=== PATIENT | male | born 1945 | race Caucasian/White ===

== ENCOUNTER 2018-06-20 10:10 | Emergency (ER) | payer MEDICARE ==
[~2018-06-20] VITALS: Ht 185.4 cm; Wt 113.0 kg
--- NOTE | 2018-06-20 10:43 | NUR ---
AFTER EATING LUNCH YESTERDAY PATIENT WITH SENSATION OF NEEDING TO CLEAR HIS THROAT- DENIES CHOKING ON ANYTHING. PRESENTS TODAY SENSATION REMAINS AND NOW FEELS IF THROAT IS SWOLLEN/REPORTS VOICE SOUNDS DIFFERENT WELL. THROAT DOES NOT APPEAR SWOLLEN. DENIES LIFESTYLE/MEDICATION CHANGES. NO RESP DISTRESS NOTED. ON INSTRUCTIONAL DESIGN TECHNOLOGIST, VSS. IN BED W/ CALL [place] IN HAND/SIDE RAILS UP.
[2018-06-20 10:49] LABS: BASOPHILS # (AUTO) 0.02 x10^3/uL (0-0.1); BASOPHILS % (AUTO) 0 % (0-1); EOSINOPHILS # (AUTO) 0.29 x10^3/uL (0-0.4); EOSINOPHILS % (AUTO) 4 % (1-7); LYMPHOCYTES # (AUTO) 1.46 x10^3/uL (1-3.4); LYMPHOCYTES % (AUTO) 21 % (22-44); MD NO; MEAN CORPUSCULAR HEMOGLOBIN 31.8 pg (27.5-34.5); MEAN CORPUSCULAR HGB CONC 33.2 g/dL (33.2-36.2); MEAN CORPUSCULAR VOLUME 95.8 fL (81-97); MONOCYTES # (AUTO) 0.59 x10^3/uL (0.2-0.8); MONOCYTES % (AUTO) 9 % (2-9); NEUTROPHILS # (AUTO) 4.49 x10^3/uL (1.8-6.8); NEUTROPHILS % (AUTO) 66 % (42-75); PLATELET COUNT 163 x10^3/uL (130-400); RED BLOOD COUNT 4.22 x10^6/uL (4.38-5.82)
[2018-06-20] MEDS ORDERED: LISI1TAB5 PO (10:57)
[2018-06-20] MEDS ORDERED: ASPI-496 PO (10:57)
[2018-06-20] MEDS ORDERED: ALLO100T30 PO (10:57)
[2018-06-20 10:59] LABS: ANION GAP 6 mmol/L (5-15); CALCIUM 8.7 mg/dL (8.5-10.1); CHLORIDE 105 mmol/L (98-107); CREATININE 1.22 mg/dL (0.7-1.3)
[2018-06-20] MEDS ORDERED: SODIUM CHLORIDE FLUSH 10ML SYR IVF ONE (11:00)
[2018-06-20] MEDS ORDERED: OMNIPAQUE 350 MG/ML, 100ML BOTTLE ONE (11:15)
--- NOTE | 2018-06-20 11:39 | NUR ---
RETURNED FROM CT. SENSATION OF THROAT IRRITATION WITHOUT WORSENING REMAINS. NO RESP DISTRESS NOTED. ON EXERCISE SCIENCE INTERNSHIP, VSS. IN BED W/ CALL [place] IN HAND/SIDE RAILS UP. UPDATED ON ESTIMATED POC.
[2018-06-20] MEDS ORDERED: DEXAMETHASONE 4 MG/ML, 1ML ONE (12:29)
[2018-06-20] MEDS ORDERED: DEXAMETHASONE 4 MG/ML, 5ML IVPush ONE (12:30)
[2018-06-20 13:04] VITALS: BP 110/66
== END 2018-06-20 13:07 | disposition home or self-care (01) ==
LOC: ED 12:03
DX: R60.0 Localized edema (principal)
CPT/HCPCS: 36415; 70491; 80048; 82040; 85025; 96374; 99284; J1100; Q9967